=== PATIENT | female | born 1980 | race Caucasian/White ===

== ENCOUNTER 2022-06-07 10:37 | Day surgery (SDC) | payer BC ==
[2022-05-15 15:10] LABS: BASOPHILS % (AUTO) 0.2 % (0-1); EOSINOPHILS # (AUTO) 0.2 X10'3 (0-0.9); EOSINOPHILS % (AUTO) 1.8 % (0-6); LYMPHOCYTES # (AUTO) 3.2 X10'3 (1.1-4.8); LYMPHOCYTES % (AUTO) 31.1 % (21-51); MEAN CORPUSCULAR HEMOGLOBIN 29.4 PG (27.0-31.0); MEAN CORPUSCULAR HGB CONC 32.9 g/dL (33.0-36.5); MEAN CORPUSCULAR VOLUME 89.4 FL (78-98); MEAN PLATELET VOLUME 8.7 FL (7.4-10.4); MONOCYTES # (AUTO) 0.8 X10'3 (0-0.9); MONOCYTES % (AUTO) 7.5 % (2-12); NEUTROPHILS # (AUTO) 6.1 X10'3 (1.8-7.7); NEUTROPHILS % (AUTO) 59.4 % (42-75); PRE OP HEMATOCRIT 40.6 % (35.0-45.0); PRE OP HEMOGLOBIN 13.4 g/dL (12.0-16.0); PRE OP PLATELET COUNT 209 X10'3 (140-440); RED BLOOD COUNT 4.55 X10'6 (4.20-5.60)
[2022-05-15 15:33] LABS: HCG SERUM QL NEGATIVE
[2022-05-15 15:39] LABS: ALBUMIN 3.8 G/DL (3.4-5.0); ALKALINE PHOSPHATASE 66 IU/L (46-116); BLOOD UREA NITROGEN 16 MG/DL (7-18); BUN/CREATININE RATIO 26.2 (6.6-38.0); CALCIUM 9.4 MG/DL (8.5-10.1); CHLORIDE 106 MMOL/L (99-107); CREATININE 0.61 MG/DL (0.40-0.90); PRE OP ALT 24 U/L (30-65); PRE OP ANION GAP 6 (8-16); PRE OP AST 14 U/L (10-37); PRE OP BILIRUB, TOTAL 0.4 MG/DL (0.0-1.0); PRE OP GLUCOSE 100 MG/DL (70-104); PRE OP POTASSIUM 3.7 MMOL/L (3.4-5.1); PRE OP SODIUM 140 MMOL/L (135-145); TOTAL CARBON DIOXIDE 27.6 MMOL/L (24-32); TOTAL PROTEIN 7.7 G/DL (6.4-8.2); eGFR > 90 ML/MIN
[~2022-06-07] VITALS: Ht 165.1 cm; Wt 125.3 kg
[2022-06-07] VITALS (8 sets, daily range): BP systolic 125–138; BP diastolic 75–90
[~2022-06-07 10:37] MED LIST: BUPIVAcaine/PF 5 mg/ml 10ml ONE; IBUP-1984 PO; LACT1CAP65 PO; ceFAZolin inj. 3,000 MG in normal saline 100ml IV soln 100 ML IV ONE; famotidine 20mg tablet PO ONE; ringers solution, lacted 1,000 ML IV SCH
[2022-06-07] MEDS ORDERED: morphine 2 MG/ML inj. syringe IV PRN (13:00)
[2022-06-07] MEDS ORDERED: ondansetron/PF 4mg/2ml inj IV PRN (13:00)
[2022-06-07] MEDS ORDERED: labetalol 20mg/4ml (5mg/ml) syringe IV PRN (13:00)
[2022-06-07] MEDS ORDERED: meperidine/PF 25mg/ml syringe IV PRN ×3 (13:00)
[2022-06-07] MEDS ORDERED: ringers solution, lacted 1,000 ML IV SCH (13:00)
[2022-06-07] MEDS ORDERED: acetaminophen 1,000mg/100ml IV 100 ML IV PRN (13:00)
[2022-06-07] MEDS ORDERED: proCHLORperazine 10 MG/2 ml inj IV PRN (13:00)
[2022-06-07] MEDS ORDERED: hydrALAZINE 20mg/ml inj. IV PRN (13:00)
[2022-06-07] MEDS ORDERED: morphine 4 MG/ML inj SYRINge IV PRN (13:00)
--- NOTE | 2022-06-07 13:09 | NUR ---
ALL DISCHARGE CRITERIA HAS BEEN MET. VSS, PAIN AT A TOLERABLE LEVEL, VOIDING AND ABLE TO SAFELY AMBULATE AND TRANSFER SELF. IV TAKEN OUT WITHOUT ANY COMPLICATIONS. ALL DISCHARGE INSTRUCTIONS COVERED WITH PATIENT AND ALL QUESTIONS ANSWERED. PATIENT TAKEN OUT VIA WHEELCHAIR TO PERSONAL VEHICLE WHERE FAMILY/FRIEND DROVE PATIENT HOME. Addendum: 06/07/22 at 1510 by Daysi Orta RN, RN Amended: Links added.
[2022-06-07] MEDS ORDERED: midazolam 1 mg/ML 2ml injection ONE (13:39)
[2022-06-07] MEDS ORDERED: fentaNYL/PF 50MCG/1 ML 2ML syringe ONE (13:39)
[2022-06-07] MEDS ORDERED: propofol inj 20 ML IV ONE (14:00)
--- NOTE | 2022-06-07 14:09 | NUR ---
Received from OR via [facility] TO ROOM 5 RECOVERY, accompanied by Anesthesiologist DR GALINDO and report given by Anesthesiolgist. PT PRESEENTS WITH 22G LEFT FOREARM, DRESSING ON RIGHT HAND/WRIST CDI, VSS. Addendum: 06/07/22 at 1442 by Daysi Orta RN, RN Amended: Links added.
[2022-06-07] MEDS ORDERED: diphenhydrAMINE 50 mg/ml inj IV ONE (14:15)
[2022-06-07] MEDS ORDERED: HYDROcodone/acetaminophen 5mg/325mg tablet PO ONE (14:45)
== END 2022-06-07 15:09 | disposition home or self-care (01) ==
LOC: PAS 10:37
PROVIDERS: ATTEND Orthopaedic Surgery Hand Surgery
DX: M67.431 Ganglion, right wrist (principal); M17.12 Unilateral primary osteoarthritis, left knee; F32.A Depression, unspecified; F41.9 Anxiety disorder, unspecified; E66.9 Obesity, unspecified; Z68.41 Body mass index [BMI] 40.0-44.9, adult; Z79.899 Other long term (current) drug therapy; Z98.890 Other specified postprocedural states; Z87.891 Personal history of nicotine dependence; Z72.89 Other problems related to lifestyle
CPT/HCPCS: 25111; 36415; 80053; 82948; 84703; 85025; 93005; J0131; J0690; J1200; J2250; J2704; J3010; J3490; J7030; J7120; Z7506; Z7512; A4215; A4618; A7000